=== PATIENT | male | born 1955 | race Caucasian/White ===

== ENCOUNTER → 2017-08-14 | Day surgery (SDC) | payer BC ==
[2017-08-13 11:42] LABS: BASOPHILS % 0.7 % (0.0-1.0); EOSINOPHILS # (AUTO) 0.1 (0.0-0.4); EOSINOPHILS % 1.8 % (0.0-6.0); HEMATOCRIT 43.3 % (38.2-49.6); HEMOGLOBIN 14.3 g/dL (14.0-18.0); LYMPHOCYTES # (AUTO) 2.5 (1.0-3.2); LYMPHOCYTES % 40.7 % (18.0-39.1); MEAN CORPUSCULAR HEMOGLOBIN 28.7 pg (28-32); MEAN CORPUSCULAR VOLUME 86.9 fL (81-99); MONOCYTES # (AUTO) 0.7 (0.2-0.8); MONOCYTES % 11.8 % (4.4-11.3); NEUTROPHILS # (AUTO) 2.7 (2.1-6.9); NEUTROPHILS % 44.7 % (38.7-80.0); PLATELET COUNT 262 x10e3/uL (140-360); RED BLOOD COUNT 4.98 x10e6/uL (4.3-5.7); RED CELL DISTRIBUTION WIDTH 12.9 % (11.7-14.4)
[~2017-08-14] MED LIST: ASPIRIN81 MG PEG; ASPIRIN81 MG PO; CARAFATE1 GM/10 ML PO; CIPRO500 MG PO; CLONAZEPAM0.5 MG PO; CRESTOR10 MG PO; EFFIENT10 MG PO; FENTANYL CITRATE/PF 100MCG/2 ML INJ ONE; FLAGYL250 MG PO; LANSOPRAZOLE30 MG PO; LEVOTHYROXINE75 MCG PO; LIDOCAINE HCL 2% LOCAL INJ 5 ML SDV VIAL INJ ONE; LOVENOX60 MG/0.6 SC; MAGNESIUM OXID400 MG PO; METOPROLOL SUCC25 MG PO; MIDAZOLAM HCL 2 MG/2 ML VIAL ONE; NITROSTAT0.4 MG PO; PROPOFOL IV EMULSION 10 MG/ML 20 ML VIAL ONE
--- NOTE | 2017-08-30 14:36 | Operative Report ---
DATE OF PROCEDURE: August 14, 2017 GASTROINTESTINAL PROCEDURE NOTE PROCEDURE PERFORMED: Esophagogastroduodenoscopy. PREOPERATIVE DIAGNOSIS: History of Young's esophagus. POSTOPERATIVE DIAGNOSIS: Young's esophagus. PREOP MEDICATIONS: Consisted of IV sedation administered under MAC anesthesia. DESCRIPTION OF PROCEDURE: Using an [employer] video gastroscope, it was inserted into the patient's oropharynx, advanced into the hypopharynx and down into the esophagus. The mucosal pattern in the esophagus was normal except for changes of Young's esophagus in the distal esophagus from 39 to 40 cm. The biopsies were obtained. The endoscope was placed into the stomach and the cardia, fundus, body, and antrum were all within normal limits. The pylorus was visualized and entered. The duodenal bulb and postbulbar duodenum were all within normal limits. The endoscope was then withdrawn back up into the stomach, retroflexed view in the fundoplication from below, which was intact. The endoscope was then withdrawn coming back up to the esophagus, hypopharynx, oropharynx and out of the patient's mouth, and the procedure was ended. Job#: [id number] SAK
== END | disposition home or self-care (01) ==
LOC: OR 07:59
PROVIDERS: ATTEND Internal Medicine Gastroenterology
DX: K22.70 Barrett's esophagus without dysplasia (principal); K21.9 Gastro-esophageal reflux disease without esophagitis; K44.9 Diaphragmatic hernia without obstruction or gangrene; K92.1 Melena; D50.9 Iron deficiency anemia, unspecified; I25.810 Atherosclerosis of coronary artery bypass graft(s) without angina pectoris; Z95.1 Presence of aortocoronary bypass graft; Z79.02 Long term (current) use of antithrombotics/antiplatelets; Z79.82 Long term (current) use of aspirin; Z68.33 Body mass index [BMI] 33.0-33.9, adult
CPT/HCPCS: 36415; 43239; 85025; J2001; J2250

== ENCOUNTER → 2018-08-29 | Outpatient (CLI) | payer MEDICARE ==
[~2018-08-29] MED LIST changes: -FENTANYL CITRATE/PF 100MCG/2 ML INJ ONE; -LIDOCAINE HCL 2% LOCAL INJ 5 ML SDV VIAL INJ ONE; -MIDAZOLAM HCL 2 MG/2 ML VIAL ONE; -PROPOFOL IV EMULSION 10 MG/ML 20 ML VIAL ONE
--- NOTE | 2018-09-02 12:33 | Cardiology Report ---
DATE OF STUDY: August 29, 2018 NUCLEAR GATED MYOCARDIAL PERFUSION SCAN Nuclear gated myocardial perfusion scan is supervised by Dr. Isael Arteaga. I read only the nuclear part of the stress test. The patient received Myoview 10 mCi for resting protocol and 30 mCi for stress protocol. NUCLEAR STRESS REPORT: Left ventricular ejection fraction is 60% to 65%. Mild apical ischemia noted. CONCLUSION: Abnormal nuclear stress test. Mild left ventricular apical ischemia noted. Thank you, Dr. Isael Arteaga, for this nuclear medicine interpretation consultation. Job#: [id number]
== END ==
LOC: NM 10:36
PROVIDERS: ATTEND Internal Medicine Cardiovascular Disease
DX: R94.39 Abnormal result of other cardiovascular function study (principal)
CPT/HCPCS: 78452; 93017; A9502

== ENCOUNTER → 2021-05-20 | Outpatient (CLI) | payer MEDICARE ==
[~2021-05-20] MED LIST changes: +REGADENOSON 0.4 MG/5 ML SYR IV ONE
== END ==
LOC: NM 11:42
PROVIDERS: ATTEND Internal Medicine Cardiovascular Disease
DX: I25.110 Atherosclerotic heart disease of native coronary artery with unstable angina pectoris (principal)
CPT/HCPCS: 78452; 93017; A9502